=== PATIENT | female | born 1950 | race African-American/Black ===

== ENCOUNTER 2018-08-17 04:24 | Inpatient (IN) | payer OTHER ==
[2018-08-17] MEDS ORDERED: ONDANSETRON 4 MG/2 ML VIAL IVPB ONE (05:10)
[2018-08-17] MEDS ORDERED: MECLIZINE HCL 25 MG TABLET (FP) PO ONE (05:10)
--- NOTE | 2018-08-17 05:17 | PDOC ---
History of Present Illness - General Chief Complaint: Nausea/Vomiting Stated Complaint: SICK Time Seen by Provider: 08/17/18 04:50 History Source: Patient Exam Limitations: No Limitations - History of Present Illness Initial Comments: 08/17/18 05:11 Pt is a 68yo F with PMH of C-ANCA vasculitis, PE on Coumadin, HTN presenting to ED with complaints of dizziness, nausea and vomiting x 3 days. Pt states that on after monometry testing pt started to feel vertiginous and had an episode of nbnb emesis. Pt states that when she tries to get up or start walking , she starts to feel as if everything is spinning and gets nauseous. She vomited a few times yesterday as well and has not been able to eat. She endorses tinnitus and a cold a few weeks ago. Denies fevers, chills, syncope, changes in vision, chest pain, SOB, weakness, numbness/tingling, abdominal pain , diarrhea, constipation, urinary symptoms. She is here visiting from [place]. PMD: [place] PMH: see hpi PSH: none Meds: Paxil, Coumadin, Torsemide, see med rec Allergies: Sulfa, tramadol Social: denies Past History - Past Medical History Allergies/Adverse Reactions: Allergies Allergy/AdvReac Type Severity Reaction Status Date / Time Sulfa (Sulfonamide Allergy Verified 08/17/18 06:50 Antibiotics) tramadol Allergy Verified 08/17/18 06:50 Home Medications: Ambulatory Orders Amlodipine Besylate [Norvasc -] 10 mg PO DAILY 08/17/18 Torsemide [Demadex] 40 mg PO ONCE 08/17/18 COPD: No - Immunization History Immunization Up to Date: Yes - Suicide/Smoking/Psychosocial Hx Smoking History: Unknown if ever smoked Have you smoked in the past 12 months: No Information on smoking cessation initiated: No Hx Alcohol Use: No Drug/Substance Use Hx: No Review of Systems - Review of Systems Constitutional: No: Chills, Fever HEENTM: Yes: Tinnitus. No: Eye Pain, Blurred Vision, Double Vision, Nose Congestion, Hearing Loss, Throat Pain Respiratory: No: Cough, Shortness of Breath Cardiac (ROS): No: Chest Pain, Lightheadedness, Palpitations ABD/GI: Yes: Nausea, Vomiting. No: Blood Streaked Bowels, Constipated, Diarrhea , Abdominal cramping, Tarry Stools Musculoskeletal: No: Back Pain, Joint Pain, Muscle Pain Integumentary: No: Symptoms Reported Neurological: Yes: Dizziness. No: Headache, Numbness, Tingling, Tremors, Weakness *Physical Exam - Vital Signs Last Vital Signs Temp Pulse Resp BP Pulse Ox 98.2 F 95 H 16 151/78 97 08/17/18 04:50 08/17/18 04:50 08/17/18 04:50 08/17/18 04:50 08/17/18 04:50 - Physical Exam General Appearance: Yes: Appropriately Dressed, Thin. No: Apparent Distress HEENT: positive: EOMI, RAFAEL, Pharynx Normal, Other (slight horizontal nystagmus. ) Neck: positive: Trachea midline, Supple. negative: Carotid bruit, Lymphadenopathy (R), Lymphadenopathy (L) Respiratory/Chest: positive: Crackles (at bases (normal per pt)). negative: Rales, Rhonchi, Stridor, Wheezing Cardiovascular: positive: Regular Rhythm, Regular Rate, S1, S2. negative: Edema , JVD, Murmur Vascular Pulses: Carotid (R): 2+, Carotid (L): 2+, Dorsalis-Pedis (R): 2+, Doralis-Pedis (L): 2+ Gastrointestinal/Abdominal: positive: Normal Bowel Sounds, Soft. negative: Distended, Guarding, Rebound, Tenderness Musculoskeletal: negative: CVA Tenderness Extremity: positive: Normal Capillary Refill, Pelvis Stable. negative: Swelling , Calf Tenderness Integumentary: positive: Normal Color, Dry, Warm Neurologic: positive: [employer] j[employer] member II-XII NML intact, Fully Oriented, Alert, Normal Mood/ Affect, Normal Response, Motor Strength 5/5, Other (normal HINTS. unidirectional nystagmus). negative: Facial Droop, Sensory Deficit Moderate Sedation - Procedure Monitoring Vital Signs: Procedure Monitoring Vital Signs Temperature 98.2 F 08/17/18 04:50 Pulse Rate 95 H 08/17/18 04:50 Respiratory Rate 16 08/17/18 04:50 Blood Pressure 151/78 08/17/18 04:50 O2 Sat by Pulse Oximetry (%) 97 08/17/18 04:50 ED Treatment Course - LABORATORY CBC & Chemistry Diagram: 08/17/18 05:12 08/17/18 05:12 Medical Decision Making - Medical Decision Making 08/17/18 05:16 Pt is a 68yo F with PMH of C-ANCA vasculitis, PE on Coumadin, HTN presenting to ED with complaints of dizziness, nausea and vomiting x 3 days. Pt states that on after monometry testing pt started to feel vertiginous and had an episode of nbnb emesis. Pt states that when she tries to get up or start walking , she starts to feel as if everything is spinning and gets nauseous. She vomited a few times yesterday as well and has not been able to eat. She endorses tinnitus and a cold a few weeks ago. Denies fevers, chills, syncope, changes in vision, chest pain, SOB, weakness, numbness/tingling, abdominal pain , diarrhea, constipation, urinary symptoms. She is here visiting from [place]. Vitals: wnl PE: Negative HINTS, unidirectional nystagmus peripheral v. central vertigo given normal hints, most likely peripheral. -cbc, cmp, coags -zofran, meclizine -CT head, ekg CBC still pending. Labs significant for INR subtherapeutic. Pt says she takes vitamin K as directed by her pmd. Advised pt to hold off on taking for a few days. Cr 1.9 (baseline per pt). 08/17/18 06:45 Pt still feeling vertiginous. Getting 250mL NS. Sign out to morning team: pending CT, CBC considering admit obs for r/o cerebellar stroke. *DC/Admit/Observation/Transfer Diagnosis at time of Disposition: Vertigo - Referrals - Patient Instructions Printed Discharge Instructions: DI for Vertigo - Post Discharge Activity
[2018-08-17 05:30] LABS: INR 1.63 (0.83-1.09); PROTHROMBIN TIME (PATIENT) 19.3 SEC (9.7-13.0)
[2018-08-17] MEDS ORDERED: ONDANSETRON 4 MG/2 ML VIAL ONE (05:33)
[2018-08-17] MEDS ORDERED: MECLIZINE HCL 25 MG TABLET (FP) ONE ×3 (05:33→18:51)
[2018-08-17 05:45] LABS: ALK PHOS 128 U/L (45-117); ANION GAP 8 MMOL/L (8-16); BILIRUBIN,TOTAL 0.4 mg/dL (0.2-1); BLOOD UREA NITROGEN 29 mg/dL (7-18); CALCIUM 9.9 mg/dL (8.5-10.1); CHLORIDE 102 mmol/L (98-107); CO2 30 mmol/L (21-32); CREATININE 1.9 mg/dL (0.55-1.3); GLUCOSE,RANDOM 135 mg/dL (74-106); POTASSIUM 3.4 mmol/L (3.5-5.1); SGOT/AST 29 U/L (15-37); SGPT/ALT 24 U/L (13-61); SODIUM 139 mmol/L (136-145); TOT PROT 7.5 g/dl (6.4-8.2)
[2018-08-17] MEDS ORDERED: SODIUM CHLORIDE 0.9% 500 ML INFUS.BAG IV ONE (06:15)
--- NOTE | 2018-08-17 06:28 | PDOC ---
Attending Attestation - Resident Resident Name: Kim Krause - ED Attending Attestation I have performed the following: I have examined & evaluated the patient, The case was reviewed & discussed with the resident, I agree w/resident's findings & plan - HPI HPI: 08/17/18 06:26 Pt comes with dizziness. She is unsteady on her feet. She has never had vertigo and she cannot recall having a viral illness. Pt states that she has nausea and vomiting. - Physicial Exam PE: 08/17/18 06:27 Agree with resident exam. Pt has vertical as well as horizontal nystagmus. - Medical Decision Making 08/17/18 06:27 CT head; neurologic evaluation; admission for observation. 08/17/18 06:35 Pt's INR is subtherapeutic. 08/17/18 06:54 Pt will be signed out to the day ER team.
[2018-08-17] MEDS ORDERED: POTASSIUM CHLORIDE TABS 20 MEQ TABLET.ER (FP) PO ONE ×2 (07:05→07:28)
[2018-08-17 07:42] LABS: BASO % 0.6 % (0-2.0); EOS % 1.8 % (0-4.5); HEMATOCRIT 34.8 % (32.4-45.2); HEMOGLOBIN 12.2 GM/dL (10.7-15.3); LYMPH % 22.6 % (8-40); MCH 29.7 pg (25.7-33.7); MEAN CELL VOLUME 84.9 fl (80-96); MEAN PLT VOLUME 10.7 fl (7.5-11.1); MONO % 10.1 % (3.8-10.2); NEUT % 64.9 % (42.8-82.8); PLATELET COUNT 224 K/MM3 (134-434); RDW 15.2 % (11.6-15.6); WHITE BLOOD COUNT 7.2 K/mm3 (4.0-10.0)
--- NOTE | 2018-08-17 08:26 | PDOC ---
*Physical Exam - Vital Signs Last Vital Signs Temp Pulse Resp BP Pulse Ox 98.7 F 81 16 155/94 98 08/17/18 07:37 08/17/18 07:37 08/17/18 07:37 08/17/18 07:37 08/17/18 07:37 <Parvez Horton - Last Filed: 08/17/18 08:24> - Vital Signs Last Vital Signs Temp Pulse Resp BP Pulse Ox 98.7 F 81 16 155/94 98 08/17/18 07:37 08/17/18 07:37 08/17/18 07:37 08/17/18 07:37 08/17/18 07:37 <JessikaBernarda Carola - Last Filed: 08/17/18 08:30> ED Treatment Course - LABORATORY CBC & Chemistry Diagram: 08/17/18 05:12 08/17/18 05:12 - ADDITIONAL ORDERS Additional order review: Laboratory Results 08/17/18 08/17/18 08/17/18 05:12 05:12 05:12 PT with INR 19.30 H INR 1.63 H Sodium 139 Potassium 3.4 L Chloride 102 Carbon Dioxide 30 Anion Gap 8 BUN 29 H Creatinine 1.9 H Creat Clearance w eGFR 26.45 Random Glucose 135 H Calcium 9.9 Total Bilirubin 0.4 AST 29 ALT 24 Alkaline Phosphatase 128 H Troponin I < 0.02 Total Protein 7.5 Albumin 4.0 08/17/18 05:12 RBC 4.10 MCV 84.9 MCHC 35.0 RDW 15.2 MPV 10.7 Neutrophils % 64.9 Lymphocytes % 22.6 Monocytes % 10.1 Eosinophils % 1.8 Basophils % 0.6 - Medications Given in the ED: ED Medications Discontinued Medications Generic Name Dose Route Start Last Admin Trade Name Freq PRN Reason Stop Dose Admin Meclizine HCl 25 mg 08/17/18 05:10 08/17/18 05:37 Antivert - PO 08/17/18 05:11 25 mg ONCE ONE Administration Ondansetron HCl 4 mg 08/17/18 05:10 08/17/18 05:37 Zofran Injection IVPB 08/17/18 05:11 4 mg ONCE ONE Administration Potassium Chloride 40 meq 08/17/18 07:05 08/17/18 07:36 K-Dur - PO 08/17/18 07:06 40 meq ONCE ONE Administration Sodium Chloride 250 ml 08/17/18 06:15 08/17/18 06:19 Normal Saline - IV 08/17/18 06:16 250 ml ONCE ONE Administration <Parvez Horton - Last Filed: 08/17/18 08:24> - LABORATORY CBC & Chemistry Diagram: 08/17/18 05:12 08/17/18 05:12 - ADDITIONAL ORDERS Additional order review: Laboratory Results 08/17/18 08/17/18 08/17/18 05:12 05:12 05:12 PT with INR 19.30 H INR 1.63 H Sodium 139 Potassium 3.4 L Chloride 102 Carbon Dioxide 30 Anion Gap 8 BUN 29 H Creatinine 1.9 H Creat Clearance w eGFR 26.45 Random Glucose 135 H Calcium 9.9 Total Bilirubin 0.4 AST 29 ALT 24 Alkaline Phosphatase 128 H Troponin I < 0.02 Total Protein 7.5 Albumin 4.0 08/17/18 05:12 RBC 4.10 MCV 84.9 MCHC 35.0 RDW 15.2 MPV 10.7 Neutrophils % 64.9 Lymphocytes % 22.6 Monocytes % 10.1 Eosinophils % 1.8 Basophils % 0.6 - Medications Given in the ED: ED Medications Discontinued Medications Generic Name Dose Route Start Last Admin Trade Name Freq PRN Reason Stop Dose Admin Meclizine HCl 25 mg 08/17/18 05:10 08/17/18 05:37 Antivert - PO 08/17/18 05:11 25 mg ONCE ONE Administration Ondansetron HCl 4 mg 08/17/18 05:10 08/17/18 05:37 Zofran Injection IVPB 08/17/18 05:11 4 mg ONCE ONE Administration Potassium Chloride 40 meq 08/17/18 07:05 08/17/18 07:36 K-Dur - PO 08/17/18 07:06 40 meq ONCE ONE Administration Sodium Chloride 250 ml 08/17/18 06:15 08/17/18 06:19 Normal Saline - IV 08/17/18 06:16 250 ml ONCE ONE Administration <Bernarda Rosen - Last Filed: 08/17/18 08:30> Medical Decision Making - Medical Decision Making Patient has been signed out to me from the night team. - Sign out i received was to wait for Head Ct to result, if negative admit patient for r/o stroke given vertigo and vertical nystagmus. Head CT is negative. <Parvez Horton - Last Filed: 08/17/18 08:24> - Medical Decision Making signed out from Dr Ibarra pending CT head, admission for nystagmus, r/o central etiology of vertigo and CVA., CT head neg for pathology labs and lytes remarkable for elevated Cr, unclear prior and low potassium which was repleted orally admit to medicine, neuro eval, management and w/u of vertigo. VS remain stable, wnl. 08/17/18 08:29 08/17/18 08:30 <Bernarda Rosen - Last Filed: 08/17/18 08:30> *DC/Admit/Observation/Transfer - Discharge Dispostion Decision to Admit order: Yes <Parvez Horton - Last Filed: 08/17/18 08:24> - Discharge Dispostion Decision to Admit order: Yes Decision to Admit order Date/Time: 08/17/18 08:30 <Bernarda Rosen - Last Filed: 08/17/18 08:30> Diagnosis at time of Disposition: Vertigo - Discharge Dispostion Condition at time of disposition: Guarded - Referrals - Patient Instructions Printed Discharge Instructions: DI for Vertigo - Post Discharge Activity
--- NOTE | 2018-08-17 09:27 | EKG ---
Test Reason : Blood Pressure : / mmHG Vent. Rate : 080 BPM Atrial Rate : 080 BPM P-R Int : 160 ms QRS Dur : 094 ms QT Int : 388 ms P-R-T Axes : 068 019 046 degrees QTc Int : 447 ms SINUS RHYTHM WITH PREMATURE SUPRAVENTRICULAR COMPLEXES MINIMAL VOLTAGE CRITERIA FOR LVH, MAY BE NORMAL VARIANT BORDERLINE ECG NO PREVIOUS ECGS AVAILABLE Confirmed by Ovidio Squires MD ([id number]) on 08/17/2018 9:26:58 AM Referred By: Confirmed By:Ovidio Squires MD
[2018-08-17] MEDS ORDERED: ONDANSETRON 4 MG/2 ML VIAL IVPUSH PRN (10:19)
[2018-08-17] MEDS ORDERED: ONDANSETRON *ODT* 4 MG TABLET ONE (11:45)
[2018-08-17] MEDS: MECLIZINE HCL 25 MG TABLET (FP) PO PRN ×2 (11:50→18:56)
[2018-08-17] MEDS ORDERED: amLODIPine BESYLATE 5 MG TABLET (FP) PO SCH (12:30)
[2018-08-17] MEDS ORDERED: TORSEMIDE 20 MG TABLET (FP) PO SCH (12:30)
--- NOTE | 2018-08-17 12:36 | HP ---
Update: During reassessment pt began to have episode of vertigo with notable L- beating nystagmus. No focal neuro deficits appreciated. Pt was being medication with Meclizine at this time. ------ CHIEF COMPLAINT: Vertigo PCP: Out of state ([place]) HISTORY OF PRESENT ILLNESS: 68yo F with PMHx of HTN, PE (multiple years ago on AC), C-anca vasculitis, depression who presents today with symptoms of dizziness and NB/NB emesis x3. Pt reports vertigo beginning after LES manometry testing on 08/14/18. Pt reports during her first episode of vertigo she was standing up and walking out of the door of the physician office. Pt reports experiencing around 20 minutes of vertigo with resolution for the day. Pt's second episode of vertigo happened on Saturday08/16/18 with intense 20-30 minutes worth of vertigo, nausea, and 3 episodes of vomiting. Pt reports having blurry vision as well during this event and was taken to the ER by her daughter for further evaluation. Pt has not had this before. She has a granddaughter who is sick with the flu, but minimal contact with her. She denies any recent medication changes. Of note she endorses having mild baseline tinnitus with worsening during these events. Overall her hearing has not been impaired. In the ED pt received Meclizine which had helped and Zofran IV for her nausea which alleviated her symptoms. Denies f/c/d/c, headache, weakness, parasthesias, facial droop, aphasia, shortness of breath, chest pain, palpitations, abdominal pain, dysuria, polyuria , back pain, neck pain. Pt has been told that her kidney numbers have been elevated in the past, but doesn't remember any specific condition. She denies any decrease in urine output recently. Recent Travel: Denies PAST MEDICAL HISTORY: HTN PE (Coumadin) C-Anca Vasculitis (no immunomodulators) PAST SURGICAL HISTORY: None reportedly Social History: Smoking: Denies Alcohol: Denies Drugs: Denies Recent medication changes: Denies Lives at home; independent in ADLs; good family support Family History: Noncontributory Allergies Sulfa (Sulfonamide Antibiotics) Allergy (Verified 08/17/18 06:50) tramadol Allergy (Verified 08/17/18 06:50) HOME MEDICATIONS: Home Medications Medication Instructions Recorded Amlodipine Besylate [Norvasc -] 10 mg PO DAILY 08/17/18 Docusate Sodium [Colace] 100 mg PO BID 08/17/18 Paroxetine HCl [Paxil -] 20 mg PO HS 08/17/18 Torsemide [Demadex] 40 mg PO DAILY 08/17/18 Warfarin Sodium [Coumadin] 4 mg PO SUTUWETHFRSA 08/17/18 Warfarin Sodium [Coumadin] 6 mg PO MO 08/17/18 REVIEW OF SYSTEMS As per HPI PHYSICAL EXAMINATION Vital Signs - 24 hr 08/17/18 08/17/18 08/17/18 04:50 07:37 10:52 Temperature 98.2 F 98.7 F 98.4 F Pulse Rate 95 H Pulse Rate [ 81 94 H Left Apical] Respiratory 16 16 16 Rate Blood Pressure 151/78 Blood Pressure 155/94 145/81 [Left Arm] O2 Sat by Pulse 97 98 99 Oximetry (%) GENERAL: NAD, awake, alert, and fully oriented HEENT: NC/AT, EOMI without nystagmus, NATALIE, sclera anicteric, no photophobia, negative head impulse test, negative [place]-Hallpike, TM's b/l delvalle translucent without bulging or erythema, MMM. NECK: Supple, normal range of motion, no lymphadenopathy, no carotid bruits LUNGS: CTA bilaterally. No wheezes, and no crackles. No accessory muscle use. HEART: RRR, normal S1 and S2 without murmur ABDOMEN: Soft, NT/ND, normoactive bowel sounds, no guarding, no suprapubic tenderness. No organomegaly via palpation. MUSCULOSKELETAL: No CVA tenderness. EXTREMITIES: 2+ DP pulses, warm, no edema. NEUROLOGICAL: labor/excavator II-XII intact. EOMI without nystagmus, strength 5/5 in all regions. sensation intact throughout. Normal speech. Normal steady gait. NIHSS: 0 PSYCHIATRIC: Cooperative. Good eye contact. Appropriate mood and affect. SKIN: Warm, dry, no rashes or lesions noted Laboratory Results 08/17/18 08/17/18 08/17/18 05:12 05:12 05:12 WBC 7.2 RBC 4.10 Hgb 12.2 Hct 34.8 MCV 84.9 MCH 29.7 MCHC 35.0 RDW 15.2 Plt Count 224 MPV 10.7 Absolute Neuts (auto) 4.7 Neutrophils % 64.9 Lymphocytes % 22.6 Monocytes % 10.1 Eosinophils % 1.8 Basophils % 0.6 Nucleated RBC % 0 PT with INR 19.30 H INR 1.63 H Sodium 139 Potassium 3.4 L Chloride 102 Carbon Dioxide 30 Anion Gap 8 BUN 29 H Creatinine 1.9 H Creat Clearance w eGFR 26.45 Random Glucose 135 H Calcium 9.9 Total Bilirubin 0.4 AST 29 ALT 24 Alkaline Phosphatase 128 H Troponin I <0.02 Total Protein 7.5 Albumin 4.0 ASSESSMENT/PLAN: Central vs. Peripheral vertigo Subtherapeutic INR Elevated Cr Hypokalemia HTN History of PE Depression C-anca vasculitis --High suspicion for vestibulitis given HPI, duration, and lack of focal neuro deficits --MRI w/o contrast brain ordered --Meclizine 25mg PRN to continue --Zofran PRN to continue --Neurology on board --B12/Folate/TSH to be checked with AM labs --Unknown if CKD or SHIN; pt reportedly has been told she has elevated Cr --Hold Torsemide for now; monitor Cr --Monitor voiding residuals --Continue Norvasc 10mg qDaily (home dose) --Continue Coumadin 4mg /////Sat (home dose) --Continue Coumadin 6mg every Saturday --Monitor INR --Continue home dose Paxil 20mg HS --Continue Colace 100mg BID PO (home dose) FEN: Fluids: Not indicated currently; can bolus as needed/encourage PO Electrolyte abnormalities: Hypokalemia (repleted in ED with KDur 40) Nutrition: Sodium controlled PPX: DVT - Low risk; early ambulation GI - Not indicated Medications: All home medications reconciled with pt's medication list Dispo: MRI pending; observation placement with cardiac monitoring GOC: Full code Case discussed with Dr. Kelley and Dr. Beatris Ramos, DO - IM PGY-2 Visit type - Emergency Visit Emergency Visit: Yes ED Registration Date: 08/17/18 Care time: The patient presented to the Emergency Department on the above date and was hospitalized for further evaluation of their emergent condition. - New Patient This patient is new to me today: Yes Date on this admission: 08/17/18 - Critical Care Critical Care patient: No
--- NOTE | 2018-08-17 14:03 | CON.NEURO ---
Consult - Alcohol/Substance Use Hx Alcohol Use: No - Smoking History Smoking history: Unknown if ever smoked Have you smoked in the past 12 months: No Home Medications - Allergies Allergies/Adverse Reactions: Allergies Allergy/AdvReac Type Severity Reaction Status Date / Time Sulfa (Sulfonamide Allergy Verified 08/17/18 06:50 Antibiotics) tramadol Allergy Verified 08/17/18 06:50 - Home Medications Home Medications: Ambulatory Orders Amlodipine Besylate [Norvasc -] 10 mg PO DAILY 08/17/18 Docusate Sodium [Colace] 100 mg PO BID 08/17/18 Paroxetine HCl [Paxil -] 20 mg PO HS 08/17/18 Torsemide [Demadex] 40 mg PO DAILY 08/17/18 Warfarin Sodium [Coumadin] 4 mg PO SUTUWETHFRSA 08/17/18 Warfarin Sodium [Coumadin] 6 mg PO MO 08/17/18 Physical Exam-Neuro Vital Signs: Vital Signs Temperature 98.4 F 08/17/18 10:52 Pulse Rate 94 H 08/17/18 10:52 Respiratory Rate 16 08/17/18 10:52 Blood Pressure 145/81 08/17/18 10:52 O2 Sat by Pulse Oximetry (%) 99 08/17/18 10:52 Labs: CBC, BMP 08/17/18 05:12 08/17/18 05:12 INR, PTT INR 1.63 (0.83-1.09) H 08/17/18 05:12 Assessment/Plan cc Feeling of dizziness two days HPI: 68 year old female history of C-ANCA Vasculitis, PE on coumadin, HTN . Patient compalins of vertigo sensation, specially feeling of spinning sensation and nausea on moving her head and spinning sensation. Paitnet has ct head done and it isnormal. She never had stroke, depression or history of alcohol abuse. Patient lives in [place]. PMH as above. PSH: none Meds: Paxil, Coumadin, Torsemide, see med rec Allergies: Sulfa, tramadol Social: denies Allergies/Adverse Reactions: Allergies Allergy/AdvReac Type Severity Reaction Status Date / Time Sulfa (Sulfonamide Allergy Verified 08/17/18 06:50 Antibiotics) tramadol Allergy Verified 08/17/18 06:50 Home Medications Amlodipine Besylate [Norvasc -] 10 mg PO DAILY 08/17/18 Torsemide [Demadex] 40 mg PO ONCE 08/17/18 ROS , FH reviewed in chart NEUROLOGICAL EXAMINATION Alert oriented x 3, speech is normal THere is rotational nystagmus on right side, eomi pupils reactive no face asymmetry Moving all extremity sensation is normal gait and coordination is normal CT head is normal Assessment/Plan 1. 68 year old female history of C-ANCA vasculitis ( not on any disease modying agent or steroid ),PE on coumadin,HTN. She came with hitory fo severe vertigo, getting worse with movement. no other focal neuro symptoms or signs. ct head is normal, Plan: 1. Continue zofran and meclizine prn, and it is helping her 2. Concur with mri ofbrain for rule out Stroke, Given she has history of htn, vasculitis, 3. PT 4. AFTER mri of brain is normal, patient can be discharged Thanking you so much Govind Spear MD
[2018-08-17] MEDS: DOCUSATE SODIUM 100 MG CAPSULE (FP) PO SCH ×2 (14:20→22:29)
--- NOTE | 2018-08-17 14:38 | PN ---
Teaching Attending Note Name of Resident: Paras Ramos ATTENDING PHYSICIAN STATEMENT I saw and evaluated the patient. I reviewed the resident's note and discussed the case with the resident. I agree with the resident's findings and plan as documented. SUBJECTIVE:68yo F with PMHx of HTN, PE (multiple years ago on AC), C-anca vasculitis, depression who presents to the ER with dizzyness and vomiting x3. states it started 3 days ago and progressively worsening on exertion. no previous episodes. granddaughter tested +Flu. denies CP, SOB, fever, chilltoday with symptoms of dizziness and NB/NB emesis x3. Pt reports vertigo beginning after LES manometry testing on 08/14/18. Pt reports during her first episode of vertigo she was standing up and walking out of the door of the physician office. denies CP, SOB, fever, chills, N/V/C/D OBJECTIVE: Last Vital Signs Temp Pulse Resp BP Pulse Ox 98.4 F 77 16 132/89 99 08/17/18 14:21 08/17/18 14:21 08/17/18 14:21 08/17/18 14:21 08/17/18 14:21 General NAD HEENT horizontal nystagmus CV S1 S2 + no rubs/murmur/gallop Lungs CTA B/L no wheezing/rales/rhonchi Neuro strength equal in all 4 extremities ASSESSMENT AND PLAN: 68yo F with PMHx of HTN, PE (multiple years ago on AC), C-anca vasculitis, depression who presents to the ER with dizzyness and vomiting x3. 1. dizzyness- most likely vertigo but can not r/o cerebellar infarct. given meclizine. will monitor for improvement. MRI pending. neuro consult. flu swab 2. Subtherapeutic INR- no recent changes. claims she took her meds today. confirm coumadin dose and re-start. check INR 3. Acute on CKD- as per pt her kidney function is not normal but does not know her baseline. urinating without difficulty. start IVF. hold diuretics. obtain baseline labs from PMD. avoid nephrotoxic agents 4. Hypokalemia- KCl po 5. PE-on coumadin
[2018-08-17] MEDS ORDERED: WARFARIN NA 2 MG TABLET (UD) PO SCH (18:00)
[2018-08-17] MEDS ORDERED: PARoxetine HCL 10 MG TABLET (FP) ONE ×3 (22:22→22:24)
[2018-08-17] MEDS ORDERED: DOCUSATE SODIUM 100 MG CAPSULE (FP) PO ONE (22:22)
[2018-08-17] MEDS: PARoxetine HCL 20 MG TABLET (FP) PO SCH (22:29)
[2018-08-18] MEDS ORDERED: ALBUTEROL SO4 2.5/IPRATROPIUM 0.5 INH SOL 3 ML VIAL.NEB. NEB ONE (00:30)
[2018-08-18 01:05] VITALS: BMI 21.9
[2018-08-18 06:20] LABS: HEMATOCRIT 33.3 % (32.4-45.2); HEMOGLOBIN 11.5 GM/dL (10.7-15.3); MCH 29.3 pg (25.7-33.7); MCHC 34.5 g/dl (32.0-36.0); MEAN CELL VOLUME 84.8 fl (80-96); MEAN PLT VOLUME 10.2 fl (7.5-11.1); PLATELET COUNT 219 K/MM3 (134-434); RBC 3.93 M/mm3 (3.60-5.2); RDW 15.1 % (11.6-15.6); WHITE BLOOD COUNT 7.6 K/mm3 (4.0-10.0)
[2018-08-18 06:37] LABS: INR 1.76 (0.83-1.09); PROTHROMBIN TIME (PATIENT) 20.9 SEC (9.7-13.0)
[2018-08-18 06:44] LABS: ANION GAP 6 MMOL/L (8-16); BLOOD UREA NITROGEN 26 mg/dL (7-18); CALCIUM 9.7 mg/dL (8.5-10.1); CHLORIDE 102 mmol/L (98-107); CO2 31 mmol/L (21-32); CREATININE 2.1 mg/dL (0.55-1.3); GLUCOSE,RANDOM 85 mg/dL (74-106); POTASSIUM 4.5 mmol/L (3.5-5.1); SODIUM 139 mmol/L (136-145)
--- NOTE | 2018-08-18 08:38 | PN ---
Physical Exam: SUBJECTIVE: Patient seen and examined at bedside. C/o continuing dizziness, nausea, tinnitus, sinus pressure, denies vomiting since admission. Endorses improvement in n/v w/ Zofran but denies improvement in vertiginous symptoms w/ meclizine. OBJECTIVE: Vital Signs Period Temp Pulse Resp BP Sys/Bello Pulse Ox Last 24 Hr 98.4 F-99.0 F 71-94 16-18 119-145/63-89 97-99 GENERAL: A&Ox3, NAD HEENT: NC/AT, EOMI, PERRLA, +left-beating horizontal nystagmus, MMM, reproducible facial TTP at maxillary and frontal sinuses NECK: Trachea midline, full range of motion, supple. LUNGS: CTA b/l HEART: RRR no m/r/g ABDOMEN: +bs, soft, NT, ND EXTREMITIES: 2+ pulses, warm, well-perfused, no edema. 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 SKIN: Warm, dry, normal turgor, no rashes or lesions noted Laboratory Results - last 24 hr 08/17/18 08/18/18 08/18/18 17:06 05:30 05:30 WBC 7.6 RBC 3.93 Hgb 11.5 Hct 33.3 MCV 84.8 MCH 29.3 MCHC 34.5 RDW 15.1 Plt Count 219 MPV 10.2 PT with INR INR Sodium 139 Potassium 4.5 Chloride 102 Carbon Dioxide 31 Anion Gap 6 L BUN 26 H Creatinine 2.1 H Creat Clearance w eGFR 23.56 Random Glucose 85 Calcium 9.7 Influenza A (Rapid) Negative Influenza B (Rapid) Negative 08/18/18 05:30 WBC RBC Hgb Hct MCV MCH MCHC RDW Plt Count MPV PT with INR 20.90 H INR 1.76 H Sodium Potassium Chloride Carbon Dioxide Anion Gap BUN Creatinine Creat Clearance w eGFR Random Glucose Calcium Influenza A (Rapid) Influenza B (Rapid) Active Medications Generic Name Dose Route Start Last Admin Trade Name Freq PRN Reason Stop Dose Admin Amlodipine Besylate 10 mg 08/17/18 12:45 Norvasc - PO DAILY JULIO Docusate Sodium 100 mg 08/17/18 12:30 08/17/18 22:29 Colace - PO 100 mg BID JULIO Administration Meclizine HCl 25 mg 08/17/18 10:20 08/17/18 18:56 Antivert - PO 25 mg BID PRN Administration VERTIGO Ondansetron HCl 4 mg 08/17/18 10:19 Zofran Injection IVPUSH Q6H PRN NAUSEA Paroxetine HCl 20 mg 08/17/18 22:00 08/17/18 22:29 Paxil - PO 20 mg HS JULIO Administration Warfarin Sodium 6 mg 08/18/18 18:00 Coumadin - PO MO JULIO Warfarin Sodium 4 mg 08/17/18 18:00 08/17/18 18:28 Coumadin - PO 4 mg SUTUWETHFRSA JULIO Administration ASSESSMENT/PLAN: 68 y/o F w/ PMHx HTN, remote PE on AC, C-ANCA vasculitis, depression, p/w worsening vertigo beginning 08/14, admitted for evaluation of central vs peripheral etiology #vertigo -presentation c/w vestibulitis -no focal neuro deficits, only horizontal nystagmus observed -MRI brain w/o acute pathology -neurology following -cont Zofran PRN -increasing meclizine to 50 BID #CKD vs SHIN -Cr worsening to 2.1 -cont hold torsemide -nephrology records obtained from office of Dr. Conor Navarro ([phone]): baseline Cr is 1.7-1.8, prior high was 2.0 one year ago -monitor BUN/Cr -gentle hydration #hypokalemia -corrected #h/o PE -INR subtherapeutic -cont warfarin: 6mg today, will recheck INR in the AM and consider increasing dose #depression -cont Paxil #HTN -cont norvasc #FEN -NS @ 50 -monitor and correct lytes -sodium controlled diet #PPX -DVT: warfarin -GI: not indicated #code -full #dispo -telemetry Visit type - Emergency Visit Emergency Visit: No - New Patient This patient is new to me today: Yes Date on this admission: 08/18/18 - Critical Care Critical Care patient: No
[2018-08-18] MEDS: DOCUSATE SODIUM 100 MG CAPSULE (FP) PO SCH ×2 (09:26→21:16)
[2018-08-18] MEDS: MECLIZINE HCL 25 MG TABLET (FP) PO PRN (09:27)
[2018-08-18] MEDS: amLODIPine BESYLATE 10 MG TABLET (FP) PO SCH (09:31)
--- NOTE | 2018-08-18 10:09 | PN ---
Progress Note (short form) - Note Progress Note: 68 year old female history of C-ANCA Vasculitis, PE on coumadin, HTN . Patient compalins of vertigo sensation, specially feeling of spinning sensation and nausea on moving her head and spinning sensation. Verena has ct head done and it isnormal. She never had stroke, depression or history of alcohol abuse. she has no vomiting, she continue to have vertigo sensation and ringing in her ear. Her mri of brain is normal. NEUROLOGICAL EXAMINATION Alert oriented x 3, speech is normal THere is rotational nystagmus on right side, eomi pupils reactive no face asymmetry Moving all extremity sensation is normal gait and coordination is normal CT head is normal mri of brain is normal Assessment/Plan 1. 68 year old female history of C-ANCA vasculitis ( not on any disease modying agent or steroid ),PE on coumadin,HTN. She came with hitory fo severe vertigo, getting worse with movement. ct head and mri of brain is normal.Vertigo is still persisting. Plan: 1. Continue zofran and meclizine prn, 2. PT 3.Patient has these symptoms started after manometry of sinus and wishes to see ENT. Thanking you so much Govind Spear MD
[2018-08-18] MEDS ORDERED: MECLIZINE HCL 25 MG TABLET (FP) PO PRN (11:09)
[2018-08-18] MEDS ORDERED: MECLIZINE HCL 25 MG TABLET (FP) PO ONE (11:09)
--- NOTE | 2018-08-18 13:40 | PN ---
Teaching Attending Note Name of Resident: Mars Rehman ATTENDING PHYSICIAN STATEMENT I saw and evaluated the patient. I reviewed the resident's note and discussed the case with the resident. I agree with the resident's findings and plan as documented. SUBJECTIVE:continues to have vertigo, worse with ambulation. only able to take a few steps. denies CP, SOB, fever, chills, N/V/C/D OBJECTIVE: Last Vital Signs Temp Pulse Resp BP Pulse Ox 98.5 F 82 18 118/70 97 08/18/18 09:00 08/18/18 09:00 08/18/18 09:00 08/18/18 09:00 08/18/18 05:35 General NAD HEENT horizontal nystagmus ASSESSMENT AND PLAN: 68yo F with PMHx of HTN, PE (multiple years ago on AC), C-anca vasculitis, depression who presents to the ER with dizzyness and vomiting x3. 1. dizzyness- likely vertigo. increase dose of meclizine. ashley holly by PT. will give gentle IV hyrdation. MRI negative for cerebellar infarct. 2. Subtherapeutic INR- will d/w PMD about possible recent changes vs labile INR issues. will increase coumadin to 5mg. trend INR 3. Acute on CKD-slight uptrend. obtain baseline values from PMD. hold diuretic. avoid nephrotoxic agents 4. Hypokalemia- resolved 5. PE-on coumadin 6. anticipate d/c in 24H
[2018-08-18] MEDS ORDERED: SODIUM CHLORIDE 1,000 ML IV SCH (14:15)
[2018-08-18] MEDS ORDERED: WARFARIN NA 3 MG TABLET PO SCH (18:00)
[2018-08-18] MEDS: PARoxetine HCL 20 MG TABLET (FP) PO SCH (21:16)
[2018-08-19 07:12] LABS: BASO % 0.8 % (0-2.0); EOS % 3.7 % (0-4.5); HEMATOCRIT 32.5 % (32.4-45.2); HEMOGLOBIN 11.1 GM/dL (10.7-15.3); LYMPH % 35.1 % (8-40); MCH 29.1 pg (25.7-33.7); MCHC 34.2 g/dl (32.0-36.0); MEAN CELL VOLUME 84.9 fl (80-96); NEUT % 50.4 % (42.8-82.8); PLATELET COUNT 213 K/MM3 (134-434); RBC 3.83 M/mm3 (3.60-5.2); RDW 15.5 % (11.6-15.6); WHITE BLOOD COUNT 6.1 K/mm3 (4.0-10.0)
[2018-08-19 07:38] LABS: INR 1.94 (0.83-1.09)
[2018-08-19 09:01] LABS: ANION GAP 5 MMOL/L (8-16); CALCIUM 9.8 mg/dL (8.5-10.1); CHLORIDE 105 mmol/L (98-107); CO2 30 mmol/L (21-32); CREATININE 1.8 mg/dL (0.55-1.3); GLUCOSE,RANDOM 79 mg/dL (74-106); MAGNESIUM 2.5 mg/dL (1.8-2.4); PHOSPHOROUS 3.5 mg/dL (2.5-4.9); POTASSIUM 4.6 mmol/L (3.5-5.1); SODIUM 141 mmol/L (136-145)
[2018-08-19] MEDS: amLODIPine BESYLATE 10 MG TABLET (FP) PO SCH (09:22)
[2018-08-19] MEDS: DOCUSATE SODIUM 100 MG CAPSULE (FP) PO SCH ×2 (09:22→21:46)
--- NOTE | 2018-08-19 11:05 | PN ---
Progress Note (short form) - Note Progress Note: 68 year old female history of C-ANCA Vasculitis, PE on coumadin, HTN . Her spinning sensation is better. Patient is still having trouble walking. Verena has ct head done and it isnormal. She never had stroke, depression or history of alcohol abuse. Her mri of brain is normal NEUROLOGICAL EXAMINATION Alert oriented x 3, speech is normal THere is rotational nystagmus on right side, eomi pupils reactive no face asymmetry Moving all extremity sensation is normal gait and coordination is normal CT head is normal mri of brain is normal Assessment/Plan 1. 68 year old female history of C-ANCA vasculitis ( not on any disease modying agent or steroid ),PE on coumadin,HTN. Vertigo is improving. Plan: 1. Continue zofran and meclizine prn, 2. PT can be done outpatient 3. Patient can be discharged from neuro point of view, as she is feeling better and can follow outpatient. Thanking you so much Govind Spear MD
--- NOTE | 2018-08-19 12:51 | PN ---
Physical Exam: SUBJECTIVE: Patient seen and examined at bedside. Endorses partial improvement in vertiginous symptoms with increased dose of meclizine. Still anxious about outcome. N/v resolved. OBJECTIVE: Vital Signs Period Temp Pulse Resp BP Sys/Bello Pulse Ox Last 24 Hr 82 F-98.6 F 72-125 18-20 110-140/66-81 97-97 GENERAL: A&Ox3, NAD HEENT: NC/AT, EOMI, PERRLA, some residual left-beating nystagmus but significantly improved vs yesterday, MMM NECK: Trachea midline, full range of motion, supple. LUNGS: CTA b/l HEART: RRR no m/r/g ABDOMEN: +bs, soft, NT, ND EXTREMITIES: 2+ pulses, warm, well-perfused, no edema. 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 SKIN: Warm, dry, normal turgor, no rashes or lesions noted Laboratory Results - last 24 hr 08/19/18 08/19/18 08/19/18 06:10 06:10 06:10 WBC 6.1 RBC 3.83 Hgb 11.1 Hct 32.5 MCV 84.9 MCH 29.1 MCHC 34.2 RDW 15.5 Plt Count 213 MPV 10.0 Absolute Neuts (auto) 3.1 Neutrophils % 50.4 D Lymphocytes % 35.1 D Monocytes % 10.0 Eosinophils % 3.7 D Basophils % 0.8 Nucleated RBC % 0 PT with INR 23.00 H INR 1.94 H Sodium 141 Potassium 4.6 Chloride 105 Carbon Dioxide 30 Anion Gap 5 L BUN Creatinine 1.8 H Creat Clearance w eGFR 28.15 Random Glucose 79 Calcium 9.8 Phosphorus 3.5 Magnesium 2.5 H Active Medications Generic Name Dose Route Start Last Admin Trade Name Freq PRN Reason Stop Dose Admin Amlodipine Besylate 10 mg 08/17/18 12:45 08/19/18 09:22 Norvasc - PO 10 mg DAILY JULIO Administration Docusate Sodium 100 mg 08/17/18 12:30 08/19/18 09:22 Colace - PO 100 mg BID JULIO Administration Meclizine HCl 50 mg 08/19/18 22:00 Antivert - PO BID JULIO Ondansetron HCl 4 mg 08/17/18 10:19 Zofran Injection IVPUSH Q6H PRN NAUSEA Paroxetine HCl 20 mg 08/17/18 22:00 08/18/18 21:16 Paxil - PO 20 mg HS JULIO Administration Warfarin Sodium 6 mg 08/18/18 18:00 08/18/18 18:05 Coumadin - PO 6 mg MO JULIO Administration Warfarin Sodium 5 mg 08/19/18 18:00 Coumadin - PO [facility]PL[facility]: 68 y/o F w/ PMHx HTN, remote PE on AC, C-ANCA vasculitis, depression, p/w worsening vertigo beginning 08/14, admitted for evaluation of central vs peripheral etiology #vertigo -presentation c/w vestibulitis -no focal neuro deficits, only horizontal nystagmus observed -MRI brain w/o acute pathology -neurology following -cont Zofran PRN -converting meclizine to standing order -ambulation w/ PT using walker observed to be very unsteady #CKD vs SHIN -Cr resolved to baseline 1.8 -cont to hold torsemide -nephrology records obtained from office of Dr. Conor Navarro ([phone]): baseline Cr is 1.7-1.8, prior high was 2.0 one year ago -monitor BUN/Cr -no further IV hydration #hypokalemia -corrected #h/o PE -INR remains subtherapeutic -cont warfarin: increasing 4mg component of dose dose to 5mg #depression -cont Paxil #HTN -cont norvasc #FEN -encourage PO hydration, no IVF -monitor and correct lytes -sodium controlled diet #PPX -DVT: warfarin -GI: not indicated #code -full #dispo -converted to inpatient -transfer to med/surg -awaiting placement for vestibular rehab Visit type - Emergency Visit Emergency Visit: No - New Patient This patient is new to me today: No - Critical Care Critical Care patient: No
--- NOTE | 2018-08-19 14:31 | PN ---
Teaching Attending Note Name of Resident: Mars Rehman ATTENDING PHYSICIAN STATEMENT I saw and evaluated the patient. I reviewed the resident's note and discussed the case with the resident. I agree with the resident's findings and plan as documented. SUBJECTIVE: Still complains of dizziness (room spinning), nausea, unsteadiness on her feet. No headache/limb numbness/weakness/tingling. OBJECTIVE: Afebrile, Hemodynamically Stable. Unsteady gait - unable to mobilize independently. Last Vital Signs Temp Pulse Resp BP Pulse Ox 82 F L 82 20 125/70 97 08/19/18 09:00 08/19/18 09:00 08/19/18 09:00 08/19/18 09:00 08/19/18 06:00 HEENT - Atraumatic, Normocephalic. No pharyngeal erythema/exudate. Horizontal Nystagmus on L lateral gaze. Neuro - AAO x 3. RAFAEL. EOMI with Nystagmus as above. Tone/Power normal all 4 extremities. Heart - S1, S2, RRR. Lungs - clear to auscultation - no crackles/wheeze. Abdomen - Soft, non-tender. Bowel Sounds normal. Extremities - no edema, no calf tenderness. Laboratory Results - last 24 hr 08/19/18 08/19/18 08/19/18 06:10 06:10 06:10 WBC 6.1 RBC 3.83 Hgb 11.1 Hct 32.5 MCV 84.9 MCH 29.1 MCHC 34.2 RDW 15.5 Plt Count 213 MPV 10.0 Absolute Neuts (auto) 3.1 Neutrophils % 50.4 D Lymphocytes % 35.1 D Monocytes % 10.0 Eosinophils % 3.7 D Basophils % 0.8 Nucleated RBC % 0 PT with INR 23.00 H INR 1.94 H Sodium 141 Potassium 4.6 Chloride 105 Carbon Dioxide 30 Anion Gap 5 L BUN Creatinine 1.8 H Creat Clearance w eGFR 28.15 Random Glucose 79 Calcium 9.8 Phosphorus 3.5 Magnesium 2.5 H Current Medications Generic Name Dose Route Start Last Admin Trade Name Freq PRN Reason Stop Dose Admin Amlodipine Besylate 10 mg 08/17/18 12:45 08/19/18 09:22 Norvasc - PO 10 mg DAILY JULIO Administration Docusate Sodium 100 mg 08/17/18 12:30 08/19/18 09:22 Colace - PO 100 mg BID JULIO Administration Meclizine HCl 50 mg 08/19/18 22:00 Antivert - PO BID JULIO Ondansetron HCl 4 mg 08/17/18 10:19 Zofran Injection IVPUSH Q6H PRN NAUSEA Paroxetine HCl 20 mg 08/17/18 22:00 08/18/18 21:16 Paxil - PO 20 mg HS JULIO Administration Warfarin Sodium 6 mg 08/18/18 18:00 08/18/18 18:05 Coumadin - PO 6 mg MO JULIO Administration Warfarin Sodium 5 mg 08/19/18 18:00 Coumadin - PO SUTUWETHFRSA [facility] ASSESSMENT AND PLAN: 68 year old female with history of HTN, PE (on Coumadin), C-ANCA vasculitis, Depression, presrnted to ED with dizziness (room spinning around her) and nausea /vomiting x3, with unsteady gait. 1. Vertigo - BPPV versus viral labrynthitis. Ongoing symptoms and unsteady gait. Unable to mobilize independently with PT - currently a fall risk. MRI Brain neg. Continue increased dose of meclizine and anti-emetic. May need SNF/ Vestibular Rehab if no significant improvement by tomorrow. Neurology following. 2. History of PE - on coumadin with Subtherapeutic INR. Daily Coumadin dose increased from 4mg to 5mg 6 days/week, with 6mg on 7th day. INR today 1.94. Will monitor. 3. SHIN on CKD 3 - improved with IV hydration. Creat back to baseline 1.7. 4. Hypokalemia- resolved 5. HTN -Continuen Norvasc. 6. Depression - continue Paxil. DVT Px - on Coumadin.
[2018-08-19] MEDS ORDERED: PT OWN MED DRAWER 7, Y5N ONE (17:18)
[2018-08-19] MEDS ORDERED: ONDANSETRON 4 MG/2 ML VIAL IVPUSH PRN (17:26)
[2018-08-19] MEDS ORDERED: WARFARIN NA 5 MG TABLET (UD) PO SCH (18:00)
[2018-08-19] MEDS: WARFARIN NA 5 MG TABLET (UD) PO SCH (18:42)
[2018-08-19] MEDS ORDERED: PARoxetine HCL 10 MG TABLET (FP) ONE (21:00)
[2018-08-19] MEDS: MECLIZINE HCL 25 MG TABLET (FP) PO SCH (21:45)
[2018-08-19] MEDS ORDERED: PARoxetine HCL 20 MG TABLET (FP) PO SCH (22:00)
--- NOTE | 2018-08-20 07:55 | PN ---
Physical Exam: SUBJECTIVE: Patient seen and examined at bedside. Endorses partial improvement in vertiginous symptoms with increased dose of meclizine. Still anxious about outcome. N/v resolved. Seen ambulating freely between bed and bathroom. OBJECTIVE: Vital Signs Period Temp Pulse Resp BP Sys/Bello Pulse Ox Last 24 Hr 82 F-98.7 F 80-91 18-20 122-127/60-78 96-97 GENERAL: A&Ox3, NAD HEENT: NC/AT, EOMI, PERRLA, some residual left-beating nystagmus but significantly improved vs yesterday, MMM NECK: Trachea midline, full range of motion, supple. LUNGS: CTA b/l HEART: RRR no m/r/g ABDOMEN: +bs, soft, NT, ND EXTREMITIES: 2+ pulses, warm, well-perfused, no edema. 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 SKIN: Warm, dry, normal turgor, no rashes or lesions noted Laboratory Results - last 24 hr 08/19/18 06:10 Sodium 141 Potassium 4.6 Chloride 105 Carbon Dioxide 30 Anion Gap 5 L BUN Creatinine 1.8 H Creat Clearance w eGFR 28.15 Random Glucose 79 Calcium 9.8 Phosphorus 3.5 Magnesium 2.5 H Active Medications Generic Name Dose Route Start Last Admin Trade Name Freq PRN Reason Stop Dose Admin Amlodipine Besylate 10 mg 08/20/18 10:00 Norvasc - PO DAILY [facility] Docusate Sodium 100 mg 08/19/18 22:00 08/19/18 21:46 Colace - PO 100 mg BID JULIO Administration Meclizine HCl 50 mg 08/19/18 22:00 08/19/18 21:45 Antivert - PO 50 mg BID JULIO Administration Ondansetron HCl 4 mg 08/19/18 17:26 Zofran Injection IVPUSH Q6H PRN NAUSEA Paroxetine HCl 20 mg 08/19/18 22:00 08/19/18 21:46 Paxil - PO 20 mg HS JULIO Administration Warfarin Sodium 6 mg 08/25/18 18:00 Coumadin - PO [email or web address] [facility] Warfarin Sodium 5 mg 08/19/18 18:00 08/19/18 18:42 Coumadin - PO Not Given [email or web address] [facility]RSE: Patient is a 68 y/o F w/ PMHx HTN, remote PE on AC, C-ANCA vasculitis, depression who presented with worsening vertigo beginning 08/14/09 and associated with nausea, vomiting, and balance deficits. She was observed to have left-beating horizontal nystagmus and admitted for evaluation of central vs peripheral etiology. Additionally, INR was noted to be subtherapeutic and dosage was adjusted. Neurology was consulted and the patient was seen by Dr. Spear. Brain MRI did not identify any central abnormalities. The patient was treated symptomatically with meclizine and improved. She was evaluated by physical therapy and deemed competent to ambulate with minimal assistance. She was discharged with a prescription for meclizine, a walker, instructions for follow up with primary medical care and neurology, and set up with home physical therapy for vestibular rehabilitation.
[2018-08-20 07:56] LABS: ANION GAP 3 MMOL/L (8-16); BLOOD UREA NITROGEN 25 mg/dL (7-18); CALCIUM 9.4 mg/dL (8.5-10.1); CHLORIDE 106 mmol/L (98-107); CO2 30 mmol/L (21-32); CREATININE 1.5 mg/dL (0.55-1.3); GLUCOSE,RANDOM 83 mg/dL (74-106); POTASSIUM 4.1 mmol/L (3.5-5.1); SODIUM 139 mmol/L (136-145)
[2018-08-20 08:29] LABS: INR 2.23 (0.83-1.09); PROTHROMBIN TIME (PATIENT) 26.5 SEC (9.7-13.0)
--- NOTE | 2018-08-20 08:58 | PN ---
Progress Note (short form) - Note Progress Note: 68 year old female history of C-ANCA Vasculitis, PE on coumadin, HTN . Her spinning sensation is better. Patient is still having trouble walking. Verena has ct head done and it isnormal. She never had stroke, depression or history of alcohol abuse. Her mri of brain is normal, vertigo has resolved and she still feels wobbly . NEUROLOGICAL EXAMINATION Alert oriented x 3, speech is normal THere is rotational nystagmus on right side, eomi pupils reactive no face asymmetry Moving all extremity sensation is normal gait and coordination is normal CT head is normal mri of brain is normal Assessment/Plan 1. 68 year old female history of C-ANCA vasculitis ( not on any disease modying agent or steroid ),PE on coumadin,HTN. Vertigo is improving, still wobbly. Plan: 1. Continue zofran and meclizine prn, 2.continue PT now and as outpatient 3. follow outpatient Thanking you so much Govind Spear MD
[2018-08-20] MEDS ORDERED: amLODIPine BESYLATE 10 MG TABLET (FP) PO SCH (10:00)
[2018-08-20] MEDS: MECLIZINE HCL 25 MG TABLET (FP) PO SCH (10:00)
[2018-08-20] MEDS: DOCUSATE SODIUM 100 MG CAPSULE (FP) PO SCH (10:00)
[2018-08-20] MEDS ORDERED: PSEUDOEPHEDRINE HCL 30 MG TABLET PO ONE (13:36)
--- NOTE | 2018-08-20 14:53 | PN ---
Teaching Attending Note Name of Resident: Mars Rehman ATTENDING PHYSICIAN STATEMENT I saw and evaluated the patient. I reviewed the resident's note and discussed the case with the resident. I agree with the resident's findings and plan as documented. SUBJECTIVE: Dizziness (room spinning) significantly resolved. No further nausea. No headache/limb numbness/weakness/tingling. OBJECTIVE: Afebrile, Hemodynamically Stable. Last Vital Signs Temp Pulse Resp BP Pulse Ox 97.9 F 90 18 132/70 100 08/20/18 10:00 08/20/18 10:00 08/20/18 10:08/20/18 10:08/20/18 09:00 HEENT - Atraumatic, Normocephalic. No pharyngeal erythema/exudate. Horizontal Nystagmus on L lateral gaze improved. Neuro - AAO x 3. RAFAEL. Tone/Power normal all 4 extremities. Heart - S1, S2, RRR. Lungs - clear to auscultation - no crackles/wheeze. Abdomen - Soft, non-tender. Bowel Sounds normal. Extremities - no edema, no calf tenderness. Laboratory Results - last 24 hr 08/20/18 08/20/18 06:20 06:20 PT with INR 26.50 H INR 2.23 H Sodium 139 Potassium 4.1 Chloride 106 Carbon Dioxide 30 Anion Gap 3 L BUN 25 H Creatinine 1.5 H Creat Clearance w eGFR 34.74 Random Glucose 83 Calcium 9.4 Current Medications Generic Name Dose Route Start Last Admin Trade Name Freq PRN Reason Stop Dose Admin Amlodipine Besylate 10 mg 08/20/18 10:08/20/18 10:00 Norvasc - PO 10 mg DAILY JULIO Administration Docusate Sodium 100 mg 08/19/18 22:00 08/20/18 10:00 Colace - PO 100 mg BID JULIO Administration Meclizine HCl 50 mg 08/19/18 22:00 08/20/18 10:00 Antivert - PO 50 mg BID JULIO Administration Ondansetron HCl 4 mg 08/19/18 17:26 Zofran Injection IVPUSH Q6H PRN NAUSEA Paroxetine HCl 20 mg 08/19/18 22:00 08/19/18 21:46 Paxil - PO 20 mg HS JULIO Administration Warfarin Sodium 6 mg 08/25/18 18:00 Coumadin - PO [email or web address] JULIO Warfarin Sodium 5 mg 08/19/18 18:00 08/19/18 18:42 Coumadin - PO Not Given [email or web address] [facility] ASSESSMENT AND PLAN: 68 year old female with history of HTN, PE (on Coumadin), C-ANCA vasculitis, Depression, presented to ED with dizziness (room spinning around her) and nausea /vomiting x3, with unsteady gait. 1. Vertigo - BPPV versus viral labrynthitis. Symptoms and unsteady gait much improved. MRI Brain neg. Continue increased dose of meclizine and anti-emetic. Evaluated by Neurology and cleared for discharge home with outpatient PT/ Vestibular Rehab and ambulatory assist device/walker. 2. History of PE - on coumadin with Subtherapeutic INR on presentation. Daily Coumadin dose increased from 4mg to 5mg 6 days/week, with 6mg on 7th day. INR today 2.23. Outpatient INR checks as before. 3. SHIN on CKD 3 - resolved with IV hydration. Creat back to baseline. 4. Hypokalemia- resolved 5. HTN -Continue Norvasc. 6. Depression - continue Paxil. DVT Px - on Coumadin. Medically and Neurologically stable for discharge with out-patient PT.
[2018-08-20 15:11] VITALS: BP 109/65; PULSE 85; TEMP 97.8
--- NOTE | 2018-08-20 15:13 | DS ---
Physical Exam: SUBJECTIVE: Patient seen and examined at bedside. Endorses partial improvement in vertiginous symptoms with increased dose of meclizine. Still anxious about outcome. N/v resolved. Seen ambulating freely between bed and bathroom. OBJECTIVE: Vital Signs Period Temp Pulse Resp BP Sys/Bello Pulse Ox Last 24 Hr 97.9 F-98.7 F 80-90 18-20 115-132/60-74 96-100 PHYSICAL EXAM GENERAL: A&Ox3, NAD HEENT: NC/AT, EOMI, PERRLA, some residual left-beating nystagmus but significantly improved vs yesterday, MMM NECK: Trachea midline, full range of motion, supple. LUNGS: CTA b/l HEART: RRR no m/r/g ABDOMEN: +bs, soft, NT, ND EXTREMITIES: 2+ pulses, warm, well-perfused, no edema. 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 SKIN: Warm, dry, normal turgor, no rashes or lesions noted LABS Laboratory Results - last 24 hr 08/20/18 08/20/18 06:20 06:20 PT with INR 26.50 H INR 2.23 H Sodium 139 Potassium 4.1 Chloride 106 Carbon Dioxide 30 Anion Gap 3 L BUN 25 H Creatinine 1.5 H Creat Clearance w eGFR 34.74 Random Glucose 83 Calcium 9.4 HOSPITAL COURSE: Date of Admission:08/17/18 Patient is a 68 y/o F w/ PMHx HTN, remote PE on AC, C-ANCA vasculitis, depression who presented with worsening vertigo beginning 08/14/09 and associated with nausea, vomiting, and balance deficits. She was observed to have left-beating horizontal nystagmus and admitted for evaluation of central vs peripheral etiology. Additionally, INR was noted to be subtherapeutic and dosage was adjusted. Neurology was consulted and the patient was seen by Dr. Spear. Brain MRI did not identify any central abnormalities. The patient was treated symptomatically with meclizine and improved. She was evaluated by physical therapy and deemed competent to ambulate with minimal assistance. She was discharged with a prescription for meclizine, pseudoephedrine, a walker, instructions for follow up with primary medical care and neurology, and set up with home physical therapy for vestibular rehabilitation. Date of Discharge: 08/20/18 Minutes to complete discharge: 36 Discharge Summary Reason For Visit: VERTIGO Current Active Problems Vertigo (Acute) Condition: Improved - Instructions Diet, Activity, Other Instructions: You were evaluated in the hospital for vertigo. In the inpatient setting, we were able to rule out abnormalities in the brain causing your symptoms. You were given medications to improve those symptoms. You will still require outpatient follow up neurology for further evaluation of your vertigo and ongoing management. Please see Dr. Spear or another neurologist closer to your home within one week of discharge for this purpose. In the meantime, you are being prescribed medication to control vertigo symptoms. Please take it as prescribed. We are also prescribing a short course of a decongestant to assist in your recovery. Please take this medication as prescribed. You are being set up with home services for physical rehabilitation and rehabilitation of your vestibular (balance) system. Additionally, you chronically take a blood- thinning medication called warfarin (brand name: Coumadin). Be sure to follow up with your primary medical doctor to evaluate your dosage of this medication. If you experience worsening dizziness, loss of consciousness, neck stiffness, worsening nausea/vomiting, fever, changes in vision, focal weakness or change in sensation, or any other new or concerning symptoms, please return to the Emergency Department. Referrals: Govind Spear MD [Staff Physician] - 1 Week Disposition: HOME - Home Medications Comprehensive Discharge Medication List: Ambulatory Orders Amlodipine Besylate [Norvasc -] 10 mg PO DAILY 08/17/18 Docusate Sodium [Colace] 100 mg PO BID 08/17/18 Paroxetine HCl [Paxil -] 20 mg PO HS 08/17/18 Torsemide [Demadex] 20 mg PO TID 08/17/18 Warfarin Sodium [Coumadin] 4 mg PO [id number] 08/17/18 Warfarin Sodium [Coumadin] 6 mg PO MO 08/17/18 Timolol Maleate 0.5% Gfs [Timoptic Xe 0.5%] 1 drop OD BID 08/18/18 Meclizine HCl 50 mg PO BID PRN #28 tablet 08/20/18 Pseudoephedrine HCl [Sudafed 24-Hour] 240 mg PO DAILY PRN #5 tab.er.24h This patient is new to me today: No Emergency Visit: No Critical Care patient: No - Discharge Referral Referred to [facility] No
[2018-08-20] MEDS: WARFARIN NA 5 MG TABLET (UD) PO SCH (18:15)
[2018-08-25] MEDS ORDERED: WARFARIN NA 3 MG TABLET PO SCH (18:00)
== END 2018-08-20 18:35 | disposition home or self-care (01) | DRG 149 ==
LOC: JER 04:24 → UNDOADMOB 08:26 → JERBED 08:26 → INTOOBSV 08:26 → JERBED 10:19 → J4W 08-18 00:12 → OBSVTOIN 08-19 10:54 → J7W 08-19 18:03
PROVIDERS: ADMIT Internal Medicine
DX: R42 Dizziness and giddiness (principal); N17.9 Acute kidney failure, unspecified; D68.8 Other specified coagulation defects; I10 Essential (primary) hypertension; Z86.711 Personal history of pulmonary embolism; E87.6 Hypokalemia; I12.9 Hypertensive chronic kidney disease with stage 1 through stage 4 chronic kidney disease, or unspecified chronic kidney disease; Z79.01 Long term (current) use of anticoagulants; R26.81 Unsteadiness on feet; F32.9 Major depressive disorder, single episode, unspecified; H55.09 Other forms of nystagmus; N18.3 Chronic kidney disease, stage 3 (moderate)
CPT/HCPCS: 36415; 70450-TC; 70551-TC; 80048; 80053; 83735; 84100; 84484; 85025; 85027; 85610; 87804; 93005; 93010; 97116-GP; 97162-GP; 99285-25; G0378; J7030